=== PATIENT | male | born 1975 | race Caucasian/White ===

== ENCOUNTER 2022-08-28 11:33 | Emergency (ER) | payer MEDICAID ==
[~2022-08-28] VITALS: Ht 175.3 cm; Wt 90.7 kg
[2022-08-28 11:34] VITALS: BP 114/75
--- NOTE | 2022-08-28 11:38 | NUR ---
Pt to Chair C under [place] [employer] supervision
[2022-08-28] MEDS ORDERED: ACET-9882 PO (11:50)
--- NOTE | 2022-08-28 11:59 | NUR ---
46/M [facility] PREBOOK FOR BILATERAL FEET PAIN. PATIENT REPORTS FEET HURT FROM "WALKING IN THE RAIN WITH NO SOCKS." DENIES INJURY OR TRAUMA
[2022-08-28] MEDS ORDERED: ACETAMINOPHEN EXTRA STRENGTH 500 MG TAB PO SCH (12:00)
--- NOTE | 2022-08-28 12:18 | NUR ---
PATIENT BIB [employer]. PATIENT EXAMINED BY MCKENZIE CORADO. PATIENT MEDICALLY CLEARED AND RELEASED IN CUSTODY IN STABLE CONDITION. ORIGINAL PRE-BOOK FORM GIVEN TO OFFICER EMANUEL.
== END 2022-08-28 12:17 | disposition home or self-care (01) ==
LOC: MED 11:33
DX: M79.671 Pain in right foot (principal); M79.672 Pain in left foot; F12.90 Cannabis use, unspecified, uncomplicated; Z79.899 Other long term (current) drug therapy
CPT/HCPCS: 99283